=== PATIENT | male | born 1940 | race Caucasian/White ===

== ENCOUNTER 2016-11-21 20:15 | Emergency (ER) | payer MEDICARE, OTHER ==
--- NOTE | 2016-11-25 13:04 | ER ---
ADMIT: 11/21/2016 RM/LOC: ER [facility] MR#: [id number] [address] [id number] SUSANNAORLANDO Araujo [address] [place] [address] Emergency Room Report SEX: M AGE: 76 : 1940 DATE: 11/21/2016 CHIEF COMPLAINT: Constipation. HISTORY OF PRESENT ILLNESS: A 76-year-old male, who presents with lower abdominal pain, inability to have bowel movements for the past three days. States he has not had trouble with this in the past. Admits to some abdominal fullness. Denies any fevers, chills, nausea, vomiting, diarrhea, loss of appetite, or back pain. Has not tried anything at this point for the constipation, is currently sick with some upper respiratory symptoms, cough, congestion for the past week. Has been on antibiotics for this. Denies any narcotic pain medications. No known drug allergies. COURSE IN THE EMERGENCY ROOM: GENERAL: The patient was seen and examined, afebrile, nontoxic. No acute distress. LUNGS: Clear. ABDOMEN: Soft, nontender. No tenderness, guarding, or rebound. No McBurney's point tenderness. BACK: Normal inspection. SKIN: Warm and dry. EXTREMITIES: No pedal edema. I did get a KUB of his abdomen, significant for heavy stool burden. He was given Dulcolax suppository. Was able to have a bowel movement in the department tonight. IMPRESSION: 1. Abdominal pain. 2. Constipation. DISPOSITION: The patient was discharged home to use MiraLax [id number] per package instructions daily. I did tell him he could use Dulcolax over-the- counter as needed for constipation. Increase fluids. Continue home medications. Return with worsening signs or symptoms and follow up with Dr. Zarate. Questions sought and answered to the best of my ability and to the patient's satisfaction. Discharged in stable condition. NAYLA Lacey / Dm Dumont MD / jason JOB #: [id number] CC: Dm Dumotn MD, Attending Physician Rashi Zarate MD, Family Physician
[2017-01-05] MEDS ORDERED: ACTOS15 MG PO (13:22)
[2017-01-05] MEDS ORDERED: SYNTHROID100 MCG PO (13:22)
[2017-01-05] MEDS ORDERED: GLUCOTROL DPS5 MG PO (13:22)
[2017-01-05] MEDS ORDERED: FEOSOL-DPS325 MG PO (13:22)
[2017-01-05] MEDS ORDERED: LIPITOR DPS10 MG PO (13:22)
[2017-01-05] MEDS ORDERED: MIRALAX PACKET17 GM PO (13:23)
[2017-01-05] MEDS ORDERED: PEPCID DPS20 MG PO (13:23)
[2017-01-05] MEDS ORDERED: TYLENOL DPS325 MG PO (13:23)
[2017-01-05] MEDS ORDERED: COLACE-DPS100 MG PO (13:23)
[2017-01-05] MEDS ORDERED: COUMADIN5 MG PO (13:24)
[2017-01-12] MEDS ORDERED: PERCOCET 5-3251 EACH PO (11:57)
[2017-01-12] MEDS ORDERED: ASA325 MG PO (11:57)
[2017-01-12] MEDS ORDERED: OMNICEF DPS300 MG PO (11:58)
[2017-01-12] MEDS ORDERED: MAALOX DPS30 ML PO (11:58)
[2017-01-12] MEDS ORDERED: PLAVIX75 MG PO (11:58)
[2017-01-12] MEDS ORDERED: ELIQUIS5 MG PO (11:58)
[2017-01-12] MEDS ORDERED: ROBITUSSIN AC D30 ML PO (11:59)
== END 2016-11-21 23:16 | disposition home or self-care (01) ==
LOC: ER 20:15
DX: K59.00 Constipation, unspecified (principal); R10.30 Lower abdominal pain, unspecified; E78.5 Hyperlipidemia, unspecified; E11.9 Type 2 diabetes mellitus without complications; Z90.49 Acquired absence of other specified parts of digestive tract; Z98.890 Other specified postprocedural states; Z79.84 Long term (current) use of oral hypoglycemic drugs; Z79.899 Other long term (current) drug therapy